=== PATIENT | male | born 1975 | race Hispanic/Latino ===

== ENCOUNTER 2017-01-16 11:16 | Inpatient (IN) | payer OTHER ==
[~2017-01-16] VITALS: Ht 177.8 cm; Wt 93.5 kg
[~2017-01-16 11:16] MED LIST: ATEN50TA7 PO; INSU100C4 SQ; INSU100V8 IJ
[2017-01-16 11:19] VITALS: BP 150/106; PULSE 130; RESP 22; O2SAT 100
--- NOTE | 2017-01-16 11:31 | ED.REPORT ---
HPI-General Illness Date of Service Jan 16, 2017 ED Provider: Hussein Meier MD Pt is a 41 year old male with a history of type II DM on insulin and HTN who presents to the ED complaining of vomiting onset 3 days ago. He c/o associated abdominal pain, tachypnea, palpitations, and nausea. He denies fever, cough, increased urination, hematemesis, and SOB. Pt presented to Urgent Care with his symptoms and he was referred to the ED for further evaluation due to a blood sugar greater than 500. Pt reports that his vomiting is exacerbated with acidic beverages. He has experienced similar symptoms 1x previously. He states that he last used 30 units of Novolog this morning. Nursing Notes Stated Complaint: BLODD SUGAR LEVEL Chief Complaint: General Complaint Nursing Notes Reviewed: Yes ([facility]. meds not reconciled) Allergies: Coded Allergies: No Known Allergies (Verified , 02/09/09) Scheduled Insulin Regular, Human (Novolin-R U100 Insulin Vial) 100 Unit/1 Ml Vial Unknown Dose SQ ACHS General Time Seen by MD: 11:24 Chief Complaint Vomiting Hx Obtained From: Patient Arrived By: Walk-in Sudden in Onset?: No Onset Occurred: 3 days ago Symptom Duration: Since onset Location: : Abdomen Quality: Painful Radiation: : Does not radiate Severity: Current: Moderate Severity: Maximum: Moderate Recent Healthcare: Recent doctor visit Similar Sx Previous: Yes Past Medical History Past Medical History Reports: Diabetes mellitus (type II), Hypertension Past Surgical History Denies: Appendectomy, Cholecystectomy Smoking History Unknown if Ever Smoker Social History Alcohol Use: "Social" Drug Use: Denies drug use Other Social History: Good social support Ambulatory Status Independent Review of Systems + tachypnea Full Review of Systems Constitutional: Denies: Fever Respiratory: Denies: Non-productive cough, Shortness of breath Cardiovascular: Reports: Palpitations GI: Reports: Abdominal pain, Nausea, Vomiting, Denies: Hematemesis Male: Denies Urination increased Complete sys rev & neg: except as marked. Physical Exam Vital Signs Vital Signs Date Time Temp Pulse Resp B/P Pulse Ox O2 Delivery O2 Flow Rate FiO2 01/16/17 11:19 36.3 130 22 150/106 100 Initial VS: Reviewed, Vital signs abnormal Head / Eyes: Atraumatic, Normocephalic Neck: Supple, Full range of motion Cardiovascular: Regular rate & rhythm, Heart sounds normal, Intact distal pulses Extremities: Vascular intact, Neuro intact Skin: Warm, Dry, No cyanosis Neurologic: Alert, Oriented, Nonfocal Psychiatric: Mood/affect normal, Behavior normal General/Constitutional: Awake, Alert He is moderately ill appearing and severely dehydrated. Mouth: Positive: Mucous membranes dry Respiratory / Chest: Atraumatic, Breath sounds = bilat He is not short of breath or dypneic, but has kussmaul respiration. Cardiovascular: Regular rhythm, Heart sounds NL, No murmurs Heart Rate / Rhythm: Positive: Tachycardia Abdomen: Atraumatic, Soft, Non-tender, No guarding, No rebound There are no signs of acute surgery Interpretation & Diagnostics Lab Results Interpretation Result Diagram: 01/16/17 1133 01/16/17 1133 Test 01/16/17 11:30 01/16/17 11:33 Phosphorus Level 5.9mg/dL (2.5-4.9) Magnesium Level 2.0mg/dL (1.6-2.6) Lipase 864U/L (13-60) White Blood Count 10.3th/mm3 (3.8-10.1) Red Blood Count 5.12mil/mm3 (4.40-5.80) Hemoglobin 15.8g/dL (13.8-17.2) Hematocrit 48.0% (41.0-50.0) Mean Corpuscular Volume 93.8fL (81-100) Mean Corpuscular Hemoglobin 30.9pg (27.0-35.0) Mean Corpuscular Hemoglobin Concent 32.9% (32.0-37.0) Red Cell Distribution Width 12.2% (12.3-15.4) Platelet Count 108bil/L (150-400) Neutrophils (%) (Auto) 80.0% (40-74) Lymphocytes (%) (Auto) 7.3% (14-46) Monocytes (%) (Auto) 10.7% (4-12) Eosinophils (%) (Auto) 0% (0-5) Basophils (%) (Auto) 0.8% (0-3) Sodium Level 131mEq/L (134-144) Potassium Level 5.3mEq/L (3.5-5.2) Chloride Level 85mEq/L (97-108) Carbon Dioxide Level 4mmol/L (18-29) Blood Urea Nitrogen 14mg/dL (6-24) Creatinine 1.19mg/dL (0.76-1.27) Estimat Glomerular Filtration Rate 72mL/min (>59) Glucose Level 542mg/dL (60-99) Calcium Level 9.0mg/dL (8.5-10.1) Total Bilirubin 1.0mg/dL (0.0-1.2) Aspartate Amino Transf (AST/SGOT) 101U/L (0-50) Alanine Aminotransferase (ALT/SGPT) 109U/L (0-44) Alkaline Phosphatase 164U/L (25-150) Troponin T 0.010ug/L (0.0-0.011) Total Protein 9.3g/dL (6.4-8.4) Albumin 4.8g/dL (3.4-5.0) Hold Comer Top Tube Received (Received) Ketones Moderate (Negative) Lab Results Interpretation: CBC normal CMP trace hyperkalemia, severe metabolic anion gap acidosis, hyperglycemia-consistent with DKA Ketones moderate Troponin #1 negative LFTs marginally elevated pH: 7.045 PCO2: 23 PO2: 44.8 cHCO3: 5.9 cBase: -25.1 tHb: 16.5 sO2: 67.9 FCoHb: 1.8 FMetHb: 1.1 Fo2Hb: 65.9 FIO2: 21.0 ECG Interpretation ECG Interpretation: Sinus tachycardia with a rate of 129 Peaked t-waves Benign early repolarization Unchanged from 01/2009 aside from the tachycardia Time: 11:38 Interpreted by: ED physician Re-Eval/Medical Decision Med Decision/Clinical Course This is a 41-year-old male in some dependent diabetes who reports he has not been able to afford his Lantus or atenolol, spent trying to get by on just his NovoLog through for the past 3 days his had nausea, vomiting, poly-dyspnea, and just felt worse and worse when he went to urgent care-ends and referred to the ED. He denies fever, is not currently having abdominal pain, he denies diarrhea, he is profoundly tachycardic-but not febrile or hypotensive. He appears severely dehydrated and has [place] respirations are evident on exam with the tachypnea. The venous blood gas confirms a significant metabolic acidosis, Accu -Chek was elevated, and labs demonstrate significant diabetic ketoacidosis with an anion gap 42. Patient received initial aggressive hydration, insulin drip per DKA protocol was initiated (this note there is no order set for this in the computer system, the paper system for DKA order sets were used) the patient's being admitted to the CCU. He is mildly hyperkalemic here, but I anticipate need for aggressive potassium replacement shortly. Renal function is normal. He indicates his DKA is precipitated by the medication noncompliance rather than an acute coronary syndrome, acute abdomen, sepsis, etc... This is discussed with hospice the patient is being admitted for continued management. Source of Hx: Old records Time of Eval: 12:09 Patient Status: Condition improved Re-Evaluation/Progress Note: Pt rechecked. Informed pt of diabetic ketoacidosis. Informed pt of plan for admission. Pt understands and agrees with plan for admission. Pt reports that he does not take lantus currenly. All questions addressed. Consultation : Referral / Consult Name: Brie Estrella MD Consulted With: Hospitalist Call Returned at: 12:43 Filter Tank Tender: Will see patient, Agrees with eval, Agrees with plan, Accepts admit Differential Diagnosis: Positive: Diabetes mellitus, Negative: Abdominal pain, Acute coronary syndrome, Allergies, Malingering, Medication refill, Neutropenia, Pneumonia, Seizure disorder Counseled Regarding: Diagnosis, Lab results, Need for admission Discharge & Departure Primary Impression: DKA (diabetic ketoacidoses) Diabetes mellitus type: other specified (including ELIEL) Diabetes mellitus complication detail: without coma Qualified Code: E13.10 - Other specified diabetes mellitus with ketoacidosis without coma Disposition: ADMITTED TO HOSPITAL Discharge Condition All VS Reviewed: Yes Condition: Stable Crit Care Except Billable Proc Time Spent: 30-74 minutes Services Performed: Patient management by me, Time spent at bedside, Reviewing test results, Reviewing imaging, Discussing patient care, Documentation in record, Time with fam/surrogate Scribe Attestation Portions of this note were transcribed by Bettie Toribio. I, Dr. Meier personally performed the history, physical exam and medical decision-making; I reviewed and confirmed the accuracy of the information in the transcribed note. Signed by: Lucía Nava, 01/16/17. Hussein Meier MD Jan 16, 2017 11:31 Bettie Olmedo Jan 16, 2017 11:39
[2017-01-16] MEDS ORDERED: 0.9% Sodium Chloride 1,000 ML IV ONE ×2 (11:35→11:45)
--- NOTE | 2017-01-16 11:40 | ABG ---
DateTimeAnalyzed 11:33:00 -_ pH ____7.045 - 7.320 7.420 pCO2 ___22.5__ -mmHg 41.0 51.0 pO2 ___44.8__ -mmHg 24.0 40.0 HCO3- ____5.9__ -mmol/L ABE __-25.1__ -mmol/L tHb ___16.5__ -g/dL 12.0 18.0 O2Hb ___65.9__ -% COHb ____1.8__ -% 0.0 1.5 MetHb ____1.1__ -% 0.4 1.5 sO2 ___67.9__ -% FIO2 ___21.0__ -% Drawn By as - Date/Time Notified____ 11:40:00 -_ Notified By AMS - Notified Whom DR LIANET - B 759 -mmHg tO2 ___15.2__ -Vol% José Manuel test N/A -
[2017-01-16] MEDS ORDERED: Ondansetron 2 mg/mL 2 mL Inj IVPUSH ONE (11:45)
[2017-01-16 11:48] LABS: BASOPHILS % (AUTO) 0.8 % (0-3); EOSINOPHILS % (AUTO) 0 % (0-5); MONOCYTES % (AUTO) 10.7 % (4-12); Mean Corpuscular Hemoglobin 30.9 pg (27.0-35.0); Mean Corpuscular Volume 93.8 fL (81-100); Platelet Count 108 bil/L (150-400)
[2017-01-16] MEDS ORDERED: Insulin Human REGular 300 Unit/3 mL Inj IV PRN (12:00)
[2017-01-16] MEDS: Insulin Human REGular 100 Units/100 mL NS IV SCH ×4 (12:17→19:56)
[2017-01-16] MEDS ORDERED: ATEN50TA PO (12:22)
[2017-01-16 12:48] VITALS: BP 156/94; PULSE 108; RESP 24; O2SAT 100
[2017-01-16] MEDS ORDERED: Senna-Docusate 8.6-50 mg Tablet PO PRN (13:25)
[2017-01-16] MEDS ORDERED: Alum-Mag Hydrox-Simeth 30 mL Suspension PO PRN (13:25)
[2017-01-16] MEDS ORDERED: Polyethylene Glycol (PEG) 17 Gm Powder PO PRN (13:25)
[2017-01-16] MEDS ORDERED: Ondansetron 2 mg/mL 2 mL Inj IVPUSH PRN (13:25)
[2017-01-16 13:30] VITALS: BP 148/96; PULSE 120; RESP 25; O2SAT 100
[2017-01-16 14:08] LABS: Phosphorus 5.9 mg/dL (2.5-4.9)
[2017-01-16] MEDS ORDERED: INSU100V27 SQ (14:11)
--- NOTE | 2017-01-16 14:27 | NUR ---
PT ARRIVED TO CCU FROM ER AT 1430HRS PT IS COMPLAINING OF ABDOMINAL PAIN, 01/02 ( WILL OBTAIN MAIN MEDS FOR HIM) HE ALSO HAS NAUSEA AND SOME RETCHING. HR IS 112 ST, BP 150/92 SATS 99% ON ROOM AIR. INSULIN GTT AT .2UNITS/HR
--- NOTE | 2017-01-16 14:29 | PCM.HPMED ---
Subjective Date of Service Jan 16, 2017 Primary Provider: Admitting Physician: Brie Estrella MD Primary Care Physician: Nopcp Attending Physician: Brie Estrella MD Chief Complaint: Patient is a 41-year-old male with medical history significant for diabetes type II percent it to the ED with 3 days of nausea and vomiting. History of Present Illness: Per patient, reports abdominal cramps, nausea, vomiting, and weakness since last Friday and today started having diarrhea as well. Additionally, he states increase in heavy breathing. Patient denies any recent infection or respiratory symptoms, no fevers, chills, or night sweats, nor does he have any contact with sick or use of antibiotics. He further denies any SOB, CP, no leg cramps or pain. He reports having similar symptoms in the past and was admitted for DKA and newly diagnosed diabetes type II. Patient has been managing his diabetes with [id number] medication for over the past 3 years as patient does not have a PCP or insurance. He has been taking Novolin R. Patient was initially presented to urgent care which found that he has a blood glucose of > 500mg/dl, thus referred him to the ED. Blood work showed that patient have an anion gap of 41, bicarbonate of 4, sodium 131, and moderate ketones. ABG PH 7.045, with PCO2 22, PO2 of 44.8 on room air, and bicarbonate of 5.9. EKG demonstrates sinus tachycardia with peaked T-wave, abnormal R-wave redemonstrated from 2008. Review of Systems: A comprehensive review of systems was conducted with the patient and found to be negative except as above in the History of Present Illness. Allergies Coded Allergies: No Known Allergies (Verified , 02/09/09) Home Medications Novolin R H Diabetes type II diagnosed in 2008 Surgical History Denies any surgical history Family History Mother, father, grandmother with diabetes type II Social History Hx Alcohol Use: Yes (in the past) Hx Substance Use: No Hx Tobacco Use: No Smoking Status: Never Smoker Exam Vital Signs Vital Sign - Last Date Time Temp Pulse Resp B/P Pulse Ox O2 Delivery O2 Flow Rate FiO2 01/16/17 12:48 108 24 156/94 100 Room Air 01/16/17 11:19 36.3 Exam General: No acute distress, appropriately interactive HEENT: Normocephalic, atraumatic. PERRLA, EOMI, Anicteric sclerae Neck: No JVD, No bruits. No lymphadenopathy or thyromegaly. Cardiovascular: Regular rhythm, tachycardic, no murmur rub or gallop noted Pulmonary: b/l air sound with no crackles, wheezes, or rhonchi. no use of accessory muscles. Abdomen: +Bowel sound, Soft, nontender, nondistended. Extremities: No clubbing or cyanosis, no lymphedema, no b/l lower leg edema Skin: Normal temperature, turgor, and texture; no rash. No visualized skin ulcer. Neurological: CN II-VII grossly intact, moving equally on all 4 extremities Psychiatric: Normal mood and affect. AOx3 Lab and Diagnostics Result Diagram: 01/16/17 1133 01/16/17 1133 Assessment & Plan Pt is a 41-year-old male with medical history significant for diabetes type II presented with a blood glucose > 500mg/dl, found to be in DKA, thus admitted to the ICU for further medical management. Diabetes ketoacidosis, present on admission, active -Likely 2nd to not using Lantus as unable to purchase it. -Blood sugar 542 on admission with moderate ketones, gap 42, bicarbonate 4, ABG pH 7.045 -Monitor for electrolyte imbalance, BMP every 4 hours or until gap closes -Received 2 liters of normal saline in the ED, continue normal saline 150 mL/hr -Insulin drip, DKA protocol in place Possible acute pancreatics, present on admission, active -Lipase 866 with n/v, obstructive stones? -CT-abd pelvis with contrast ordered -Bowel rest, NPO -Fluids as above Insulin-dependent diabetes type II, present on admission, chronic -We will start Lantus 22 units when gap closes -Will also start lispro: Medium sliding scale -A1c, lipid ordered -Patient needs a PCP for follow-up upon discharge Transaminitis -No abdominal pain, no history of EtOH -Lipase, Hepatitis panel, HIV ordered Elevated blood pressure -Likely stress-induced -Consider adding lisinopril if SBP > 130 mmHg once DKA resolved DVT prophylaxis: Heparin CODE STATUS full code Patient Status: Patient is admitted under inpatient status with expected length of stay GREATER than 2 midnights due to severity of presenting symptoms, risk of adverse event, and complexity of treatment plan. VTE Prophylaxis: Sub-Q Heparin (Unfractionated) Resuscitation Status: CPR: Attempt Resuscitation Time spent 60 minutes Attending Statement Patient has been seen and examined by myself with medical manager and agree with above history, physical, assessment and plan. Jake Barlow DO Jan 16, 2017 14:29 Brie Estrella MD Jan 16, 2017 15:57
[2017-01-16] MEDS ORDERED: HYDROmorphone 1 mg/mL Inj IVPUSH PRN (14:45)
[2017-01-16] MEDS: 0.9% Sodium Chloride 1,000 ML IV SCH ×2 (15:10→20:16)
[2017-01-16] MEDS: D5W1/2NS 1,000 mL IV PRN (15:11)
[2017-01-16 16:00] VITALS: BP 130/65; PULSE 113; RESP 20; O2SAT 99
--- NOTE | 2017-01-16 16:33 | NUR ---
Pt to CT at 1630hrs OK'd pt to travel to CT off the monitor without CCU nurse. Pt states his pain is much better. He was able to tolerate the PO contrast and is going to CT per MD orders.
--- NOTE | 2017-01-16 16:57 | NUR ---
Pt returned from CT at approx 1650hrs
--- NOTE | 2017-01-16 17:07 | DRSVH ---
PROCEDURE: CT ABDOMEN AND PELVIS WITH CONTRAST ([id number]) INDICATIONS: elevated lipase, pancreatitis? stones? TECHNIQUE: After the administration of oral and intravenous contrast, 5 mm thick sections acquired from the diap hragms to the symphysis. 5 mm thick coronal and sagittal reformats were performed. For radiation do se reduction, the following was used: automated exposure control, adjustment of mA and/or kV accordi ng to patient size. COMPARISON: None. FINDINGS: Image quality: Excellent. ABDOMEN: Lung bases: Lung bases are clear. Heart size is normal. Solid organs: The liver is diffusely hypodense suggesting fatty infiltration. The spleen demonstrate s normal size and enhancement. A 4 mm diameter gallstone is present within the gallbladder fundus. No discrete gallbladder wall thickening or pericholecystic fluid. Biliary system is non-dilated. There is a 3.8 cm in diameter fatty right adrenal gland mass and a 1.0 cm in diameter fatty left adrenal gl and mass. Kidneys are normal in size and enhancement, without hydronephrosis. Subcentimeter low-dens ity cystic lesions are present within the left renal cortex which likely represent simple renal cysts but are too small to fully characterize. There is homogeneous pancreatic enhancement. There is diffuse peripancreatic fat stranding. No discre te peripancreatic fluid collections. Pancreatic duct is not visualized. Peritoneum and bowel: Stomach, small bowel, and colon loops are normal in caliber and wall thickness . The appendix is thin walled and gas filled. No free fluid or air. Nodes and vessels: No retroperitoneal or mesenteric adenopathy. Aorta and inferior vena cava are no rmal in caliber. Miscellaneous: No ventral hernias. PELVIS: Genitourinary: Bladder wall thickness is normal. Miscellaneous: No inguinal hernias or adenopathy. Bones: No suspicious bony lesions. No vertebral body compression fractures. IMPRESSION: 1. Acute pancreatitis, edematous type. This finding was discussed with Dr. Alexandra at 5:01 PM on 01/16/17. 2. No intrahepatic biliary ductal dilatation, dilatation of the common bile duct, or pancreatic ducta l dilatation. No discrete hypodensity focus is present within the biliary system to suggest gallstone pancreatitis. 3. Cholelithiasis. No findings to suggest choledocholithiasis or acute cholecystitis. 4. Hepatic steatosis. 5. Bilateral adrenal myelolipomas. Dictated by: Rozina Cat M.D. on 01/16/2017 at 16:57 Approved by: Rozina Cat M.D. on 01/16/2017 at 17:05
[2017-01-16] MEDS: Heparin 5,000 Unit/mL Inj SUBQ SCH (17:56)
--- NOTE | 2017-01-16 19:05 | NUR ---
Pt condition improved Pt HR is down in the 80's SR. BP stable. RR 16-20. Pt states he feels better this evening. No further nausea or vomiting. OT's decreasing and we are following the DKA protocol. Pt states his abdominal pain is much better following the diluadid.
[2017-01-16 20:00] VITALS: BP 128/82; PULSE 90; RESP 14; O2SAT 98
[2017-01-17] VITALS (8 sets, daily range): BP systolic 127–162; BP diastolic 76–102; PULSE 79–88; RESP 12–18; O2SAT 97–99
[2017-01-17] MEDS: Heparin 5,000 Unit/mL Inj SUBQ SCH (01:00)
[2017-01-17] MEDS: 0.9% Sodium Chloride 1,000 ML IV SCH ×2 (01:40→09:36)
[2017-01-17 04:23] LABS: BASOPHILS % (AUTO) 0.2 % (0-3); EOSINOPHILS % (AUTO) 2.6 % (0-5); MONOCYTES % (AUTO) 14.4 % (4-12); Mean Corpuscular Hemoglobin 31.7 pg (27.0-35.0); Platelet Count 67 bil/L (150-400)
[2017-01-17] MEDS ORDERED: KCl 40 mEq/500 mL D5W(K 3 - 3.7 & Creat < 2) IV ONE (05:15)
--- NOTE | 2017-01-17 05:20 | NUR ---
P) DKA/Respiratory Alert pt., c/o abdominal tenderness and pain but not enough that he wants pain Rx. at this point, lungs with coarse breath sounds and scattered crackles. Cardiac rhythm sinus, blood sugar in the 120's on 0.05units/kilo/hr, anion gap has gone from 23 to 15. Potassium dropped from 4.3 to 3.3, checking phos and Mg. to ensure they have not dropped as well. I) Meds per 's orders, went over pulmonary hygiene, discussed anion gap with Dr. Garcia, will cont. DKA protocol until it is closer to 12. E) Pt. resting quietly with eyes closed.
[2017-01-17 05:36] LABS: Magnesium 1.6 mg/dL (1.6-2.6); Phosphorus 1.5 mg/dL (2.5-4.9)
[2017-01-17] MEDS ORDERED: Potassium Phos (mMol) Inj 30 MMOL in Dextrose 5% 500 ML IV ONE (06:25)
[2017-01-17] MEDS: D5W1/2NS 1,000 mL IV PRN (07:07)
[2017-01-17 08:56] LABS: Bilirubin, Direct 0.2 mg/dL (0.0-0.3)
[2017-01-17 09:09] LABS: Hepatitis A Antibody IgM Negative (Negative); Hepatitis B Core Antibody IgM Negative (Negative)
--- NOTE | 2017-01-17 09:39 | PCM.PNMED ---
Subjective Date of Service Jan 17, 2017 Subjective Mr. Lindo is a 41-year-old male with medical history significant for diabetes type II presented with a blood glucose > 500mg/dl, found to be in DKA, thus admitted to the ICU for further medical management. Blood sugar levels continued to drop on insulin drip. Anion gap continues to close. We will transition off insulin drip after 2 hours of subcutaneous coverage. Patient states he feels very well overall states that he does not have any abdominal pain any longer. Will be transferred off of ICU Exam Vital Signs Vital Sign - Last Date Time Temp Pulse Resp B/P Pulse Ox O2 Delivery O2 Flow Rate FiO2 01/17/17 08:00 37.1 79 14 142/94 99 Room Air Intake and Output 01/16/17 01/16/17 01/17/17 Cumulative From/Thru 15:00 23:00 07:00 01/16/17 11:19 - 01/17/17 06:07 Intake Total 999 ml 1243 ml 2432 ml 4674 ml Output Total 0 ml 650 ml 650 ml Balance 999 ml 1243 ml 1782 ml 4024 ml Intake Oral 600 ml 600 ml IV Total 999 ml 643 ml 2432 ml 4074 ml Output Urine Total 0 ml 650 ml 650 ml Exam General: Awake and alert lying in hospital bed in no acute distress, well- developed, well-nourished, appropriately interactive HEENT: Normocephalic, atraumatic. External ears without defect. Pupils equal, round, and reactive to light and accommodation. Anicteric sclerae, moist conjunctivae, and no lid lag. Oropharynx free of erythema and cobble stoning with moist mucosa. Neck: Supple with full range of motion. No jugular venous distension. Cardiovascular: Regular rate and rhythm with no murmurs, rubs, or gallops appreciated Pulmonary: Clear to auscultation bilaterally with no crackles, wheezes, or rhonchi. Normal respiratory effort with no use of accessory muscles. Abdomen: Obese abdomen Bowel tones present. Soft, nontender to palpation 4 quadrants. Tender to deep palpation epigastric area. Extremities: No clubbing, cyanosis, edema Skin: Normal temperature, turgor, and texture Neurological: Cranial nerves grossly intact. Psychiatric: Normal mood and affect. Alert and oriented to person, place, and time. IVs and Medications Medications Reviewed: Medications were reviewed in detail Lab and Diagnostics Result Diagram: 01/17/1740401/17/17404 X-Rays, CTs and MRIs . CT ABDOMEN AND PELVIS WITH CONTRAST IMPRESSION: 1. Acute pancreatitis, edematous type. 2. No intrahepatic biliary ductal dilatation, dilatation of the common bile duct , or pancreatic ductal dilatation. No discrete hypodensity focus is present within the biliary system to suggest gallstone pancreatitis. 3. Cholelithiasis. No findings to suggest choledocholithiasis or acute cholecystitis. 4. Hepatic steatosis. 5. Bilateral adrenal myelolipomas. Dictated by: Rozina Cat M.D. on 01/16/2017 Assessment & Plan Pt is a 41-year-old male with medical history significant for diabetes type II presented with a blood glucose > 500mg/dl, found to be in DKA, thus admitted to the ICU for further medical management. Diabetes ketoacidosis, present on admission, ongoing -Likely secondary to unmedicated status, no coverage for diabetes as outpatient -Blood sugar 542 on admission with moderate ketones, gap 42, bicarbonate 4, ABG pH 7.045 -Received 2 liters of normal saline in the ED, continue normal saline 150 mL/hr -Repeat Glucose 128, Anion gap now 15 -Insulin drip, DKA protocol in place -Continue to monitor, will start Sub-Q insulin and titrate off Insulin drip Possible acute pancreatics, present on admission, ongoing -Lipase 866 on admission, trending down - 734 last value -CT-abd pelvis shows acute pancreatitis -MRCP pending -Bowel rest, NPO -Repeat enzyme levels pending -Fluids as above -Continue with IV pain medications, will transition to oral as tolerated -Continue to monitor Insulin-dependent diabetes type II, present on admission, chronic -Insulin drip for DKA, titrating off -Correctional scale insulin -A1c 12.2 -Will need PCP placement on discharge for ongoing DM management Transaminitis, present on admission, ongoing -Most likely secondary to hepatic steatosis -CT showed no biliary,bile or pancreatic duct dilation. -Continues to trend upward -HBV, HCV, HIV negative Elevated blood pressure, present on admission, improving -Likely stress-induced -Remained mostly hemodynamically stable -Consider adding lisinopril if SBP > 130 mmHg once DKA resolved Thrombocytopenia, not present on admission -DC SUB-Q heparin DVT prophylaxis: Heparin CODE STATUS full code Patient Status: Patient is admitted under inpatient status with expected length of stay GREATER than 2 midnights due to severity of presenting symptoms, risk of adverse event, and complexity of treatment plan. Pain Evaluation: Adequate Pain Control VTE Prophylaxis: Sub-Q Heparin (Unfractionated) Resuscitation Status: CPR: Attempt Resuscitation Time spent 30 minutes Attending Statement Patient has been seen and examined by myself with infertility medical assistant and agree with above history, physical, assessment and plan. DESTINY GUEVARA DO Jan 17, 2017 09:39 Brie Estrella MD Jan 17, 2017 17:07
--- NOTE | 2017-01-17 13:30 | NUR ---
NUTRITION ASSESSMENT: ASSESS:41 YO male presented with abdominal cramps, nausea, vomiting, and weakness since last Friday and today with diarrhea as well. Additionally, he states difficulty breathing. Pt. was found to be in DKA, thus admitted to the ICU for further medical management. Patient has been managing his diabetes with [id number] medication for over the past 3 years as patient does not have a PCP or insurance. He did receive inpatient diabetes education when he was first diagnosed in 2008; no outpatient education was documented. PMHx:Diabetes type II diagnosed in 2008. DIET:NPO. LABS: Reviewed. Na 131, K+ 3.3, COw 17, Cr 0.58, Glu 162, A1c 12.2, Ca 8.1, AST 72, ALT 72, alb 3.8. MEDICATIONS: Reviewed. Insulin. NUTRITION FOCUSED PHYSICAL ASSESSMENT: GI symptoms / stool: No BM reported.Oliver: 17. Skin Integrity: No issues noted. ANTHROPOMETRICS: Current Wt: 91.82 kgBMI: 29.0 kg/m2. IBW: 73.0 kg (126% IBW) ESTIMATED NEEDS (APPROACHING CLASS I OBESITY): Calories: 2020 - 2296 kcal (22 - 25 kcal / kg BW) Protein: 73 - 138 g protein (0.8 - 1.5 b / kg BW) NUTRITION DIAGNOSIS: 1)Inability, lack of desire and financial constraints to manage self-care, as evidenced by food- and nutrition-related knowledge deficit concerning self care, as evidenced by admission with DKA, using OTC medication due to inability to afford prescription medication. INTERVENTION: 1) Case Management involved to locate a PCP for this patient to help him with diabetes self-management skill building. 2)Will provide inpatient diabetes education prior to discharge and assure patient has a glucose meter for self-monitoring following discharge. MONITOR/EVALUATE: Diet advance / tolerance, PO intake, labs, GI/nutrition status. Follow up per high nutrition risk guidelines.
[2017-01-17] MEDS ORDERED: Insulin GLARgine 100 Unit/mL Syringe SUBQ ONE (13:35)
[2017-01-17] MEDS: Dextrose 5% 0.45% NaCl 1,000 ML IV SCH ×2 (13:40→15:43)
[2017-01-17 13:51] LABS: Phosphorus 2.7 mg/dL (2.5-4.9)
[2017-01-17] MEDS ORDERED: Insulin Human NPH 100 Unit/mL Syringe SUBQ ONE (14:10)
[2017-01-17] MEDS ORDERED: Insulin Human REGular 300 Unit/3 mL Inj SUBQ SCH (14:30)
--- NOTE | 2017-01-17 15:26 | NUR ---
POST HOSPITAL FOLLOW UP: Called and scheduled hospital follow up appointment for 01/24/17 check in at 235PM for 250PM with Updated PIG IRON LOADER
[2017-01-17] MEDS ORDERED: Insulin Human REGular 300 Unit/3 mL Inj SUBQ ONE (15:35)
--- NOTE | 2017-01-17 16:36 | NUR ---
Social Work- Initial Assessment/Multidisciplinary Rounds Data: See Initial Assessment and Advance Directive intervention for additional information. Pt is a 41 year old male admitted for DKA. Pt's insurance is [employer] and [employer]. Pt has no PCP. Pt's readmit risk score is 1/8, low risk. Pt discussed in multidisciplinary rounds, SW requested to help pt obtain his insulin. Pt will also require PCP follow up. Case management orders acknowledged. ROSELINE met with pt and niece at bedside regarding d/c planning, SW role explained. Pt alert and oriented x3. Pt's capacity for self-care assessed. Pt lives in [place] with his SO Bernard where he is independent with ADLs and self-care. Pt works as a [employer] in [place]. Pt drives. Pt is unsure if he has [employer] any longer since he has insurance through his job now. Pt declined DPOA information. Pt confirms that his niece will likely drive him home at d/c. SW discussed PCP and insulin with pt. Pt is agreeable to PCP follow up at [facility] clinic, DEVELOPMENTAL TRAINING COUNSELOR asked to make appointment for hospital follow up. Pt states that he has been managing his insulin himself as his lantus is too expensive, even after insurance. Pt wants to be compliant with his insulin but finances are a barrier. Pt asked if management was possible with the more affordable options at [facility], his preferred pharmacy. ROSELINE informed of this, asked EQUITY RESEARCH ANALYST to obtain pricing and type for the insulin pt was referring to. Information as follows: Reli ON $24.88 per vial Novlin N $24.88 per vial Novlin R $24.88 per vial ROSELINE provided contact information and d/c planning checklist at bedside. Pt likely to d/c home with his niece to transport. SW will continue to follow. Assessment: Pt who is independent with ADLs and self-care Plan: Pt likely to d/c home with his niece to transport via POV. ROSELINE will continue to follow and assist with any additional d/c planning needs. SOURAV Romero Addendum: 01/17/17 at 1643 by ROMEL DICKSON Amended: Links added.
--- NOTE | 2017-01-17 16:43 | NUR ---
DKA.. Pt has denied any abdominal pain or nausea. Has been sleeping most of shift and stated this afternoon that he feels so much better. Has been transitioned off DKA insulin protocol to subcutaneous algorhythm. Blood sugar remains stable off gtt and pt has no sxs. Is beginning to auto diurese, voiding large amts urine per void. K+ recheck remains low.. protocol orders sent for replacement. Has been changed to PCC status.
[2017-01-17] MEDS ORDERED: Potassium Chloride Inj 40 MEQ in 0.9% Sodium Chloride 500 ML IV ONE (16:45)
[2017-01-17] MEDS: Insulin GLARgine 100 Unit/mL Syringe SUBQ SCH (20:08)
[2017-01-17] MEDS: Insulin Human REGular 300 Unit/3 mL Inj - Medium SUBQ SCH (20:11)
--- NOTE | 2017-01-17 22:01 | NUR ---
Hypertension Pt maintaining a MAP of 100-110. Systolic 145-160. Dr. Myers called with concern for hypertension and plan is to add Lisinopril to his medications for hypertension. Pt asymptomatic. Addendum: 01/18/17 at 0539 by GALLO BULLOCK RN K=3.2, Mg=1.6 Telephone order received to replace K and Mg in NS mixture instead of dextrose solution due to patient's hyperglycemia and recent DKA. Recheck level to be drawn by day shift lab once infusion completed.
[2017-01-18] VITALS (8 sets, daily range): BP systolic 138–153; BP diastolic 91–99; PULSE 76–86; RESP 13–18; O2SAT 97–99
[2017-01-18] MEDS: Insulin Human REGular 300 Unit/3 mL Inj - Medium SUBQ SCH ×2 (02:21→07:51)
[2017-01-18] MEDS: Dextrose 5% 0.45% NaCl 1,000 ML IV SCH (02:21)
[2017-01-18 03:30] LABS: BASOPHILS % (AUTO) 0.6 % (0-3); EOSINOPHILS % (AUTO) 1.7 % (0-5); MONOCYTES % (AUTO) 14.3 % (4-12); Mean Corpuscular Hemoglobin 31.6 pg (27.0-35.0); NEUTROPHILS % (AUTO) 59.1 % (40-74); Platelet Count 67 bil/L (150-400)
[2017-01-18 03:53] LABS: Magnesium 1.6 mg/dL (1.6-2.6)
[2017-01-18] MEDS ORDERED: [UNRECOGNIZED DRUG - OTHER] IV ONE (04:40)
[2017-01-18] MEDS ORDERED: MAGNESIUM SULFATE IV ONE (04:40)
[2017-01-18] MEDS ORDERED: POTASSIUM CHLORIDE IV ONE (04:40)
[2017-01-18] MEDS: Insulin Human REGular 300 Unit/3 mL Inj SUBQ SCH ×3 (08:30→20:17)
[2017-01-18] MEDS: D5 0.9% NaCl + KCl 20 mEq/L 1,000 ML IV SCH ×3 (10:24→22:35)
--- NOTE | 2017-01-18 11:01 | DRSVH ---
PROCEDURE: MR ABDOMEN MRCP INDICATIONS: Possible gallstone pancreatitis TECHNIQUE: Coronal HASTE through the abdomen, axial 2-D FLASH in- and [id number], and breath-hold T2 FSE with fat saturation through the biliary system and pancreas. Oblique coronal and axial thin-slice HASTE, radial thick-slab HASTE centered on the extrahepatic bile ducts. Intravenous secretin: Not requested. COMPARISON: [facility], CT, CT ABD PELVIS W CON, 01/16/2017, 16:40. FINDINGS: Image quality: Excellent. Pancreas and biliary system: Intra- and extra-hepatic biliary ducts are non dilated. No definite int raluminal gallstones identified. There is central intraluminal signal change image 17-18 series 5 whi ch is not confirmed on any other pulse sequences and could be artifactual. No definite associated jessica eloisa dilatation. No gallbladder wall thickening. Diffuse peripancreatic fluid and edema is noted also surrounding the duodenum and within the philippe he patis, as visualized on prior CT dated 01/16/17. Pancreatic duct is normal in caliber, without develop mental anomalies. Gallbladder calculus seen on the prior study dated 01/16/17 is not well-visualized possibly present in the gallbladder neck on image 10 series 5 although indeterminate and this could a lso be artifactual appearance. Other solid organs: Liver and spleen are normal in size. There is peripancreatic fluid and edema. There is a right adrenal lesion with heterogeneous internal signal intensity, and fat attenuation on the recent CT presumably adrenomyolipoma. Additional left adrenal nodules better characterized on rec ent CT, please see report. Both kidneys are normal in size, without hydronephrosis. Nodes and vessels: No retroperitoneal or mesenteric adenopathy by size criteria. Aorta and inferior vena cava are normal in size. Bowel and peritoneum: Unenhanced bowel loops are normal in caliber. No free fluid. Lung bases: No basal pleural effusions. Heart size is normal. Bones and soft tissues: No ventral hernias. Bone marrow is of normal overall signal. IMPRESSION: Acute pancreatitis, as before. A previous small gallstone seen on the recent prior CT is not definitely well-visualized. This could be due to limitations of the imaging modality. Bilateral adrenal lesions, larger on the right and with appearance that suggests adrenal myolipoma. T his is not well-visualized on the left and better visualized on the recent CT. Please see report. Mild perihepatic ascites. No definite intraluminal findings to suggest choledocholithiasis. Please see comments above. If there is persistent high clinical suspicion, recommend further assessment with ERCP. Dictated by: Juvenal Roper M.D. on 01/18/2017 at 10:46 Approved by: Juvenal Roper M.D. on 01/18/2017 at 11:00
[2017-01-18 12:28] LABS: Magnesium 1.9 mg/dL (1.6-2.6)
[2017-01-18] MEDS ORDERED: Potassium Chloride Inj 40 MEQ in 0.9% Sodium Chloride 500 ML IV ONE (13:35)
--- NOTE | 2017-01-18 14:14 | PCM.PNMED ---
Subjective Date of Service Jan 18, 2017 Subjective The patient notes improvement in his upper abdominal pain. He has had no nausea or vomiting. Currently is off of IV insulin drip. Denies significant history of EtOH use. Exam Vital Signs Vital Sign - Last Date Time Temp Pulse Resp B/P Pulse Ox O2 Delivery O2 Flow Rate FiO2 01/18/17 12:59 37.3 81 15 138/91 97 Room Air Intake and Output 01/17/17 01/17/17 01/18/17 Cumulative From/Thru 15:00 23:00 07:00 01/16/17 11:19 - 01/18/17 06:44 Intake Total 2062 ml 1779 ml 8515 ml Output Total 2450 ml 1250 ml 4350 ml Balance -388 ml 529 ml 4165 ml Intake Oral 600 ml IV Total 2062 ml 1779 ml 7915 ml Output Urine Total 2450 ml 1250 ml 4350 ml Other 0 ml 0 ml Exam Constitutional: Middle-aged male in no acute distress Head: Normocephalic atraumatic Chest: Clear to auscultation Cor: Regular rate and rhythm S1-S2 Abdomen: Soft nontender bowel sounds present Extremities: No pedal edema Neuro: Alert and oriented 3, motor strength is intact bilaterally Skin: No rashes Psych: Mood and affect are appropriate Lab and Diagnostics Laboratory Tests 72 Hours Test 01/16/17 11:30 01/16/17 11:33 01/16/17 14:22 01/16/17 15:25 Hemoglobin A1c 12.2% (4.8-5.6) Osmolality 329 (275-300) Phosphorus Level 5.9mg/dL (2.5-4.9) Magnesium Level 2.0mg/dL (1.6-2.6) Lipase 864U/L (13-60) White Blood Count 10.3th/mm3 (3.8-10.1) Red Blood Count 5.12mil/mm3 (4.40-5.80) Hemoglobin 15.8g/dL (13.8-17.2) Hematocrit 48.0% (41.0-50.0) Mean Corpuscular Volume 93.8fL (81-100) Mean Corpuscular Hemoglobin 30.9pg (27.0-35.0) Mean Corpuscular Hemoglobin Concent 32.9% (32.0-37.0) Red Cell Distribution Width 12.2% (12.3-15.4) Platelet Count 108bil/L (150-400) Neutrophils (%) (Auto) 80.0% (40-74) Lymphocytes (%) (Auto) 7.3% (14-46) Monocytes (%) (Auto) 10.7% (4-12) Eosinophils (%) (Auto) 0% (0-5) Basophils (%) (Auto) 0.8% (0-3) Sodium Level 131mEq/L (134-144) 137mEq/L (134-144) Potassium Level 5.3mEq/L (3.5-5.2) 4.3mEq/L (3.5-5.2) Chloride Level 85mEq/L (97-108) 100mEq/L (97-108) Carbon Dioxide Level 4mmol/L (18-29) 6mmol/L (18-29) Blood Urea Nitrogen 14mg/dL (6-24) 12mg/dL (6-24) Creatinine 1.19mg/dL (0.76-1.27) 0.78mg/dL (0.76-1.27) Estimat Glomerular Filtration Rate 72mL/min (>59) 117mL/min (>59) Glucose Level 542mg/dL (60-99) 187mg/dL (60-99) Calcium Level 9.0mg/dL (8.5-10.1) 7.9mg/dL (8.5-10.1) Total Bilirubin 1.0mg/dL (0.0-1.2) Aspartate Amino Transf (AST/SGOT) 101U/L (0-50) Alanine Aminotransferase (ALT/SGPT) 109U/L (0-44) Alkaline Phosphatase 164U/L (25-150) Troponin T 0.010ug/L (0.0-0.011) Total Protein 9.3g/dL (6.4-8.4) Albumin 4.8g/dL (3.4-5.0) Hold Comer Top Tube Received (Received) Ketones Moderate (Negative) Hold Urine Received (Received) Triglycerides Level 330mg/dL (0-149) Cholesterol Level 236mg/dL (100-199) LDL Cholesterol, Calculated 123.000mg/dL (0-99) VLDL Cholesterol 66.000mg/dL HDL Cholesterol 47mg/dL (>39) Cholesterol/HDL Ratio 5.02 (0.0-4.4) Hepatitis A IgM Antibody Negative (Negative) Hepatitis B Surface Antigen Negative (Negative) Hepatitis B Core IgM Antibody Negative (Negative) Hepatitis C Antibody 0.2s/co ratio (0.0-0.9) Hepatitis C Comment Comment (.) HIV (1&2) Ag and Ab, 4th Generation Non reactive (Non Reactive) Test 01/16/17 19:29 01/16/17 23:18 01/17/17 04:05 01/17/17 08:37 Sodium Level 134mEq/L (134-144) 135mEq/L (134-144) 134mEq/L (134-144) 131mEq/L (134-144) Potassium Level 3.9mEq/L (3.5-5.2) 3.8mEq/L (3.5-5.2) 3.3mEq/L (3.5-5.2) 3.3mEq/L (3.5-5.2) Chloride Level 100mEq/L (97-108) 101mEq/L (97-108) 102mEq/L (97-108) 99mEq/L (97-108) Carbon Dioxide Level 11mmol/L (18-29) 15mmol/L (18-29) 17mmol/L (18-29) 17mmol/L (18-29) Blood Urea Nitrogen 11mg/dL (6-24) 11mg/dL (6-24) 11mg/dL (6-24) 10mg/dL (6- 24) Creatinine 0.72mg/dL (0.76-1.27) 0.70mg/dL (0.76-1.27) 0.61mg/dL (0.76-1.27) 0.58mg/dL (0.76-1.27) Estimat Glomerular Filtration Rate 128mL/min (>59) 132mL/min (>59) 155mL/min (>59) 164mL/min (>59) Glucose Level 165mg/dL (60-99) 141mg/dL (60-99) 128mg/dL (60-99) 164mg/dL (60-99) Calcium Level 8.1mg/dL (8.5-10.1) 8.4mg/dL (8.5-10.1) 8.0mg/dL (8.5-10.1) 8.1mg/dL (8.5-10.1) White Blood Count 6.3th/mm3 (3.8-10.1) Red Blood Count 4.20mil/mm3 (4.40-5.80) Hemoglobin 13.3g/dL (13.8-17.2) Hematocrit 37.8% (41.0-50.0) Mean Corpuscular Volume 90.0fL (81-100) Mean Corpuscular Hemoglobin 31.7pg (27.0-35.0) Mean Corpuscular Hemoglobin Concent 35.2% (32.0-37.0) Red Cell Distribution Width 11.6% (12.3-15.4) Platelet Count 67bil/L (150-400) Neutrophils (%) (Auto) 64.0% (40-74) Lymphocytes (%) (Auto) 18.5% (14-46) Monocytes (%) (Auto) 14.4% (4-12) Eosinophils (%) (Auto) 2.6% (0-5) Basophils (%) (Auto) 0.2% (0-3) Phosphorus Level 1.5mg/dL (2.5-4.9) Magnesium Level 1.6mg/dL (1.6-2.6) Total Bilirubin 0.7mg/dL (0.0-1.2) Direct Bilirubin 0.2mg/dL (0.0-0.3) Aspartate Amino Transf (AST/SGOT) 72U/L (0-50) Alanine Aminotransferase (ALT/SGPT) 72U/L (0-44) Alkaline Phosphatase 103U/L (25-150) Total Protein 7.0g/dL (6.4-8.4) Albumin 3.8g/dL (3.4-5.0) Lipase 734U/L (13-60) Test 01/17/17 13:20 01/18/17 03:08 01/18/17 11:35 Potassium Level 3.2mEq/L (3.5-5.2) 3.2mEq/L (3.5-5.2) 3.6mEq/L (3.5-5.2) Phosphorus Level 2.7mg/dL (2.5-4.9) White Blood Count 4.7th/mm3 (3.8-10.1) Red Blood Count 4.37mil/mm3 (4.40-5.80) Hemoglobin 13.8g/dL (13.8-17.2) Hematocrit 38.9% (41.0-50.0) Mean Corpuscular Volume 89.0fL (81-100) Mean Corpuscular Hemoglobin 31.6pg (27.0-35.0) Mean Corpuscular Hemoglobin Concent 35.5% (32.0-37.0) Red Cell Distribution Width 11.6% (12.3-15.4) Platelet Count 67bil/L (150-400) Neutrophils (%) (Auto) 59.1% (40-74) Lymphocytes (%) (Auto) 24.1% (14-46) Monocytes (%) (Auto) 14.3% (4-12) Eosinophils (%) (Auto) 1.7% (0-5) Basophils (%) (Auto) 0.6% (0-3) Sodium Level 134mEq/L (134-144) Chloride Level 99mEq/L (97-108) Carbon Dioxide Level 18mmol/L (18-29) Blood Urea Nitrogen 5mg/dL (6-24) Creatinine 0.48mg/dL (0.76-1.27) Estimat Glomerular Filtration Rate 204mL/min (>59) Glucose Level 252mg/dL (60-99) Calcium Level 8.3mg/dL (8.5-10.1) Magnesium Level 1.6mg/dL (1.6-2.6) 1.9mg/dL (1.6-2.6) Total Bilirubin 1.3mg/dL (0.0-1.2) Aspartate Amino Transf (AST/SGOT) 83U/L (0-50) Alanine Aminotransferase (ALT/SGPT) 68U/L (0-44) Alkaline Phosphatase 97U/L (25-150) Total Protein 6.2g/dL (6.4-8.4) Albumin 3.4g/dL (3.4-5.0) Lipase 565U/L (13-60) Result Diagram: 01/18/17 0308 01/18/17 1135 X-Rays, CTs and MRIs . CT ABDOMEN AND PELVIS WITH CONTRAST IMPRESSION: 1. Acute pancreatitis, edematous type. 2. No intrahepatic biliary ductal dilatation, dilatation of the common bile duct , or pancreatic ductal dilatation. No discrete hypodensity focus is present within the biliary system to suggest gallstone pancreatitis. 3. Cholelithiasis. No findings to suggest choledocholithiasis or acute cholecystitis. 4. Hepatic steatosis. 5. Bilateral adrenal myelolipomas. Dictated by: Rozina Cat M.D. on 01/16/2017 MRCP IMPRESSION: Acute pancreatitis, as before. A previous small gallstone seen on the recent prior CT is not definitely well- visualized. This could be due to limitations of the imaging modality. Bilateral adrenal lesions, larger on the right and with appearance that suggests adrenal myolipoma. This is not well-visualized on the left and better visualized on the recent CT. Please see report. Mild perihepatic ascites. No definite intraluminal findings to suggest choledocholithiasis. Please see comments above. If there is persistent high clinical suspicion, recommend further assessment with ERCP. Assessment & Plan Pt is a 41-year-old male with medical history significant for diabetes type II presented with a blood glucose > 500mg/dl, found to be in DKA, thus admitted to the ICU for further medical management. Diabetes ketoacidosis, present on admission, resolved -Likely secondary to unmedicated status, no coverage for diabetes as outpatient -Blood sugar 542 on admission with moderate ketones, gap 42, bicarbonate 4, ABG pH 7.045 -Received 2 liters of normal saline in the ED, continue normal saline 150 mL/hr -Repeat Glucose 128, Anion gap now 15 -Insulin drip, DKA protocol in place -Continue to monitor, will start Sub-Q insulin and titrate off Insulin drip which occurred on January 17 -DKA resolved Possible acute pancreatics, present on admission, ongoing -Lipase 866 on admission, trending down - 734 last value -CT-abd pelvis shows acute pancreatitis -MRCP pending -Bowel rest, NPO -Repeat enzyme levels pending -Fluids as above -Continue with IV pain medications, will transition to oral as tolerated -Continue to monitor -Lipases are trending down. We will keep nothing by mouth. -MRCP reveals acute pancreatitis but no other acute findings Insulin-dependent diabetes type II, present on admission, chronic -Insulin drip for DKA, titrating off -Correctional scale insulin -A1c 12.2 -Will need PCP placement on discharge for ongoing DM management -Continue with current subcutaneous regimen except increase regular insulin coverage to high dose. Given patient is nothing by mouth we will need to continue with IV D5 normal saline. Transaminitis, present on admission, ongoing -Most likely secondary to hepatic steatosis and LFTs remains fairly stable -CT showed no biliary,bile or pancreatic duct dilation. -HBV, HCV, HIV negative Elevated blood pressure, present on admission, improving -Likely stress-induced -Remained mostly hemodynamically stable -Consider adding lisinopril if SBP > 130 mmHg once DKA resolved Thrombocytopenia, not present on admission -DC SUB-Q heparin -Check HIT antibodies DVT prophylaxis: Heparin CODE STATUS full code Patient Status: Patient is admitted under inpatient status with expected length of stay GREATER than 2 midnights due to severity of presenting symptoms, risk of adverse event, and complexity of treatment plan. VTE Prophylaxis: Sub-Q Heparin (Unfractionated) Resuscitation Status: CPR: Attempt Resuscitation Time spent 30 minutes Brie Estrella MD Jan 18, 2017 14:14
--- NOTE | 2017-01-18 17:30 | NUR ---
Activity.. Pt has been up and amb more today and is lobito activity well. Continues to lobito ice chips and denies any nausea or abdominal pain. K level remains low, ongoing K rider infusing per replacement protocol.
[2017-01-18] MEDS: Insulin GLARgine 100 Unit/mL Syringe SUBQ SCH (20:18)
[2017-01-19 03:13] LABS: Mean Corpuscular Hemoglobin 31.7 pg (27.0-35.0); Mean Corpuscular Volume 90.1 fL (81-100)
[2017-01-19 03:14] LABS: EOSINOPHILS % (AUTO) 4.3 % (0-5); MONOCYTES % (AUTO) 15.1 % (4-12); NEUTROPHILS % (AUTO) 47.3 % (40-74); Platelet Count 62 bil/L (150-400)
[2017-01-19 04:00] VITALS: BP 142/93; PULSE 77; RESP 16; O2SAT 97
[2017-01-19] MEDS ORDERED: KCl 40 mEq/500 mL D5W(K 3 - 3.7 & Creat < 2) IV ONE ×2 (04:50→14:45)
[2017-01-19] MEDS: Insulin Human REGular 300 Unit/3 mL Inj SUBQ SCH ×4 (05:20→21:13)
--- NOTE | 2017-01-19 06:17 | NUR ---
Activity/labs: Pt up in room indep. no nausea or vomiting minimal abd discomfort. potassium this am was 3.4 40 meq of potassium given per replacement protocol.
[2017-01-19] MEDS: D5 0.9% NaCl + KCl 20 mEq/L 1,000 ML IV SCH ×3 (06:50→23:47)
[2017-01-19] MEDS ORDERED: KCl 40 mEq/D5W 500 mL 20 MEQ in IV Premix 1 EACH IV ONE (07:20)
[2017-01-19] MEDS ORDERED: Insulin GLARgine 100 Unit/mL Syringe SUBQ ONE (07:25)
[2017-01-19 08:00] VITALS: BP 144/96; PULSE 78; RESP 16; O2SAT 98
[2017-01-19 12:30] VITALS: BP 150/90; PULSE 72; RESP 13; O2SAT 99
--- NOTE | 2017-01-19 14:20 | PCM.PNMED ---
Subjective Date of Service Jan 19, 2017 Subjective Patient is ambulating well around room, continues ice chips without any evidence of nausea or abdominal pain. Continues K rider for persistently low potassium, K level 3.4 this morning. Lipase has trended up Blood pressure remains mildly elevated, afebrile. Urinary output 3.3 L yesterday. MRCP shows no evidence of choledocholithiasis Today patient states he is doing well, reports ongoing diarrhea yellow color. Denies any abdominal pain or return of nausea/vomiting. Is very hungry Exam Vital Signs Vital Sign - Last Date Time Temp Pulse Resp B/P Pulse Ox O2 Delivery O2 Flow Rate FiO2 01/19/17 04:00 37.5 77 16 142/93 97 Room Air Intake and Output 01/18/17 01/18/17 01/19/17 Cumulative From/Thru 15:00 23:00 07:00 01/16/17 11:19 - 01/19/17 06:13 Intake Total 1267 ml 1739 ml 06089 ml Output Total 2000 ml 6350 ml Balance -733 ml 1739 ml 5171 ml Intake Oral 400 ml 200 ml 1200 ml IV Total 867 ml 1539 ml 52978 ml Output Urine Total 2000 ml 6350 ml Other 0 ml # Voids 1 1 Exam General: Awake and alert sitting in bedside chair with family present. No acute distress and appropriately interactive HEENT: Normocephalic, atraumatic. Cardiovascular: Regular rate and rhythm with no murmurs, rubs, or gallops appreciated Pulmonary: Clear to auscultation bilaterally with no crackles, wheezes, or rhonchi. Normal respiratory effort with no use of accessory muscles. Abdomen: Obese abdomen, Bowel tones present. Soft, nontender to palpation 4 quadrants. No epigastric tenderness to deep palpation Extremities: No clubbing, cyanosis, edema Skin: Normal temperature, turgor, and texture Neurological: Cranial nerves grossly intact. Psychiatric: Normal mood and affect. Alert and oriented to person, place, and time. IVs and Medications Medications Reviewed: Medications were reviewed in detail Lab and Diagnostics Result Diagram: 01/19/1724901/19/17 025 X-Rays, CTs and MRIs . CT ABDOMEN AND PELVIS WITH CONTRAST IMPRESSION: 1. Acute pancreatitis, edematous type. 2. No intrahepatic biliary ductal dilatation, dilatation of the common bile duct , or pancreatic ductal dilatation. No discrete hypodensity focus is present within the biliary system to suggest gallstone pancreatitis. 3. Cholelithiasis. No findings to suggest choledocholithiasis or acute cholecystitis. 4. Hepatic steatosis. 5. Bilateral adrenal myelolipomas. Dictated by: Rozina Cat M.D. on 01/16/2017 MR ABDOMEN MRCP IMPRESSION: Acute pancreatitis, as before. A previous small gallstone seen on the recent prior CT is not definitely well- visualized. This could be due to limitations of the imaging modality. Bilateral adrenal lesions, larger on the right and with appearance that suggests adrenal myolipoma. This is not well-visualized on the left and better visualized on the recent CT. Please see report. Mild perihepatic ascites. No definite intraluminal findings to suggest choledocholithiasis. Please see comments above. If there is persistent high clinical suspicion, recommend further assessment with ERCP. Dictated by: Juvenal Roper M.D. on 01/18/2017 Assessment & Plan Pt is a 41-year-old male with medical history significant for diabetes type II, admitted for DKA and pancreatitis Diabetes ketoacidosis, present on admission, resolved -Likely secondary to unmedicated status, no coverage for diabetes as outpatient -Blood sugar 542 on admission with moderate ketones, gap 42, bicarbonate 4, ABG pH 7.045 -Continue D5 normal saline with KCl at 125 mL per hour -Repeat Glucose 128, Anion gap now 15 -Insulin drip, DKA protocol in place -Titrated off insulin drip, continue glargine 30 units subcutaneous on high- dose correctional scale Acute pancreatics, present on admission, ongoing -CT-abd pelvis shows acute pancreatitis -Lipase 866 on admission, continues to trend down with uptick today -MRCP shows no choledocholithiasis, shows acute pancreatitis -Bowel rest, NPO -Fluids as above -Physical exam shows no epigastric tenderness or nausea vomiting. Patient has been nothing by mouth 5 days. Will advance diet to clear liquids as tolerated. -Continue to monitor Insulin-dependent diabetes type II, present on admission, chronic -Insulin drip titrated off -Correctional scale insulin -A1c 12.2 -Will need PCP placement on discharge for ongoing DM management -Continue with current subcutaneous regimen except increase regular insulin coverage to high dose. Given patient is nothing by mouth we will need to continue with IV D5 normal saline. Transaminitis, present on admission, ongoing -Most likely secondary to hepatic steatosis and LFTs remains fairly stable -CT showed no biliary,bile or pancreatic duct dilation. -HBV, HCV, HIV negative -To monitor Elevated blood pressure, present on admission, improving -Likely stress-induced -Remained mostly hemodynamically stable -Consider adding lisinopril if SBP > 130 mmHg once DKA resolved Thrombocytopenia, not present on admission -DC SUB-Q heparin -Check HIT antibodies DVT prophylaxis: Heparin CODE STATUS full code Patient Status: Patient is admitted under inpatient status with expected length of stay GREATER than 2 midnights due to severity of presenting symptoms, risk of adverse event, and complexity of treatment plan. VTE Prophylaxis: Sub-Q Heparin (Unfractionated) Resuscitation Status: CPR: Attempt Resuscitation DESTINY GUEVARA DO Jan 19, 2017 07:40
[2017-01-19 16:49] VITALS: BP 139/95; PULSE 86; RESP 15; O2SAT 100
[2017-01-19] MEDS ORDERED: Potassium Chloride Oral 20 mEq SR Tab(K 3 - 3.7 & Creat < 2) PO ONE (16:50)
--- NOTE | 2017-01-19 17:20 | NUR ---
Electrolytes/Diet.. K+ rechecks are still requiring K replacement per protocol. Pt has been voiding QS but has not been measuring with urinal as he has also had some diarrhea stools and was not able to get the urinal due to urgency. Instructed that we still need accurate outputs if he is able. Has had NPO status changed to clear liquids and is lobito this well. Denies any nausea or abdominal pain this shift.
[2017-01-19] MEDS ORDERED: Insulin GLARgine 100 Unit/mL Syringe SUBQ SCH (21:00)
[2017-01-19 21:14] VITALS: BP 147/96; PULSE 86; RESP 13; O2SAT 97
[2017-01-20 02:37] VITALS: BP 160/101; PULSE 72; RESP 16; O2SAT 96
[2017-01-20] MEDS: Insulin Human REGular 300 Unit/3 mL Inj SUBQ SCH ×4 (02:40→21:03)
[2017-01-20 03:19] LABS: Mean Corpuscular Hemoglobin 31.3 pg (27.0-35.0)
[2017-01-20 03:20] LABS: BASOPHILS % (AUTO) 1.1 % (0-3); EOSINOPHILS % (AUTO) 5.1 % (0-5); MONOCYTES % (AUTO) 16.1 % (4-12); NEUTROPHILS % (AUTO) 44.3 % (40-74); Platelet Count 77 bil/L (150-400)
[2017-01-20] MEDS ORDERED: Potassium Chloride Oral 20 mEq SR Tab(K 3 - 3.7 & Creat < 2) PO ONE (05:05)
--- NOTE | 2017-01-20 05:58 | NUR ---
K Pt's potassium still remains low at this morning's blood draw. Pt given KCL 40MeQ. Redraw scheduled for 929 this morning.
[2017-01-20 06:10] VITALS: RESP 16
[2017-01-20 08:29] VITALS: BP 149/106; PULSE 79; RESP 20; O2SAT 99
[2017-01-20 11:51] VITALS: BP 142/98; PULSE 82; RESP 16; O2SAT 99
--- NOTE | 2017-01-20 13:50 | PCM.PNMED ---
Subjective Date of Service Jan 20, 2017 Subjective No significant events reported overnight, potassium remains low requiring potassium replacement per protocol. Today patient reports no pain or discomfort , able to ambulate without difficulty no epigastric pain. Is anxious to go home , but understands necessity for 1 more day of monitoring on advancement of diet. Vital signs remained slightly hypertensive. Good urinary output Exam Vital Signs Vital Sign - Last Date Time Temp Pulse Resp B/P Pulse Ox O2 Delivery O2 Flow Rate FiO2 01/20/17 11:51 37.2 82 16 142/98 99 Room Air Intake and Output 01/19/17 01/19/17 01/20/17 Cumulative From/Thru 15:00 23:00 07:00 01/16/17 11:19 - 01/20/17 05:50 Intake Total 3136 ml 1744 ml 71360 ml Output Total 800 ml 7150 ml Balance 3136 ml 944 ml 9251 ml Intake Oral 1200 ml 300 ml 2700 ml IV Total 1936 ml 1444 ml 83094 ml Output Urine Total 800 ml 7150 ml Other 0 ml # Voids 3 4 # Bowel Movements 3 3 Exam General: Awake and alert sitting in bedside chair in no acute distress, appropriately interactive HEENT: Normocephalic, atraumatic Cardiovascular: Regular rate and rhythm with no murmurs, rubs, or gallops appreciated Pulmonary: Clear to auscultation bilaterally with no crackles, wheezes, or rhonchi. Normal respiratory effort with no use of accessory muscles Abdomen: Bowel tones present. Soft, nontender to palpation 4 quadrants. No epigastric tenderness to deep palpation Extremities: No clubbing, cyanosis, edema Skin: Normal temperature, turgor, and texture Neurological: Cranial nerves grossly intact. Psychiatric: Normal mood and affect. Alert and oriented to person, place, and time. IVs and Medications Medications Reviewed: Medications were reviewed in detail Lab and Diagnostics Result Diagram: 01/20/17 0235 01/20/17 0935 X-Rays, CTs and MRIs . CT ABDOMEN AND PELVIS WITH CONTRAST IMPRESSION: 1. Acute pancreatitis, edematous type. 2. No intrahepatic biliary ductal dilatation, dilatation of the common bile duct , or pancreatic ductal dilatation. No discrete hypodensity focus is present within the biliary system to suggest gallstone pancreatitis. 3. Cholelithiasis. No findings to suggest choledocholithiasis or acute cholecystitis. 4. Hepatic steatosis. 5. Bilateral adrenal myelolipomas. Dictated by: Rozina Cat M.D. on 01/16/2017 MR ABDOMEN MRCP IMPRESSION: Acute pancreatitis, as before. A previous small gallstone seen on the recent prior CT is not definitely well- visualized. This could be due to limitations of the imaging modality. Bilateral adrenal lesions, larger on the right and with appearance that suggests adrenal myolipoma. This is not well-visualized on the left and better visualized on the recent CT. Please see report. Mild perihepatic ascites. No definite intraluminal findings to suggest choledocholithiasis. Please see comments above. If there is persistent high clinical suspicion, recommend further assessment with ERCP. Dictated by: Juvenal Roper M.D. on 01/18/2017 Assessment & Plan Pt is a 41-year-old male with medical history significant for diabetes type II, admitted for DKA and pancreatitis Diabetes ketoacidosis, present on admission, resolved -Likely secondary to unmedicated status, no coverage for diabetes as outpatient -Blood sugar 542 on admission with moderate ketones, gap 42, bicarbonate 4, ABG pH 7.045 -Continue to advance diet, now full liquid -Anion gap remains 15 -DKA protocol insulin drip DC'd -Titrated off insulin drip, continue glargine 30 units subcutaneous on high- dose correctional scale Acute pancreatics, present on admission, ongoing -CT-abd pelvis shows acute pancreatitis -Lipase 866 on admission, continues to trend down -MRCP shows no choledocholithiasis, shows acute pancreatitis -Bowel rest, clear liquids, advance diet to full liquids today -Physical exam shows no epigastric tenderness or nausea vomiting. -Continue to monitor Insulin-dependent diabetes type II, present on admission, chronic -Insulin drip titrated off -A1c 12.2 -Blood sugars remain elevated -Correctional scale insulin -35 units glargine subcutaneous at bedtime -Will need PCP placement on discharge for ongoing DM management, agrees to be seen in the residency clinic -Continue with current subcutaneous regimen except increase regular insulin coverage to high dose. Transaminitis, present on admission, ongoing -Most likely secondary to hepatic steatosis and LFTs remains fairly stable -CT showed no biliary,bile or pancreatic duct dilation. -HBV, HCV, HIV negative -CT shows fatty infiltration of liver -Continue to monitor Elevated blood pressure, present on admission, improving -Remains persistently hypotensive despite lisinopril 10 mg -Increase lisinopril dose to 20 mg daily Thrombocytopenia, not present on admission -DC SUB-Q heparin -HRT antibody studies pending -Platelets trending up -Continue to monitor DVT prophylaxis: SCDs, patient ambulating frequently CODE STATUS full code Patient Status: Patient is admitted under inpatient status with expected length of stay GREATER than 2 midnights due to severity of presenting symptoms, risk of adverse event, and complexity of treatment plan. VTE Prophylaxis: Sub-Q Heparin (Unfractionated) Resuscitation Status: CPR: Attempt Resuscitation Time spent 30 minutes Attending Statement Patient has been seen and examined by myself with medical imaging director and agree with above history, physical, assessment and plan. DESTINY GUEVARA DO Jan 20, 2017 13:50 Brie Estrella MD Jan 20, 2017 17:57
--- NOTE | 2017-01-20 14:18 | NUR ---
NUTRITION FOLLOW UP ASSESS: 41 YO M admitted for DKA, resolved per notes. Pt with acute pancreatitis. Diet advanced to full liquids today. PMHx: Diabetes type II diagnosed in 2008. DIET: Full liquids. PO intake 100%. LABS: BUN 3, Cr 0.47, Glu 210, AST 91, ALT 72 MEDICATIONS: Reviewed. Insulin. GI: 3 BM 01/19. SKIN: No issues noted. ANTHROPOMETRICS: Wt: 94.3 kg, BMI: 29.8 kg/m2, IBW: 73.0 kg (126% IBW) ESTIMATED NEEDS: BMI Calories: 2765-4592 kcal/day (20-22 kcal/kg BW) Protein: 91-113 g/day (1.2-1.5 g/kg IBW) NUTRITION DIAGNOSIS: 1) Food and nutrition-related knowledge deficit related to lack of self care/finances, as evidenced by DKA and using OTC medication due to inability to afford prescription medication. INTERVENTION: 1) Continue to advance diet as tolerated. Will add diabetic supplement to encourage adequate nutrition while on full liquid diet. 2) Diabetes education provided 01/18. MONITOR/EVALUATE: Diet advance/tolerance, PO intake, labs, GI/nutrition status. Follow per moderate nutrition risk guidelines.
--- NOTE | 2017-01-20 19:03 | NUR ---
BG pt BG this am 202, 4unit of Humulin R given. Pt BG in afternoon was 248, 4 unit Humulin R given given. aware. Lantus increased from 30 to 35 unit for tonight.
[2017-01-20] MEDS ORDERED: Insulin GLARgine 100 Unit/mL Syringe SUBQ SCH (21:00)
[2017-01-20 21:10] VITALS: BP 160/100; PULSE 86; RESP 18; O2SAT 98
--- NOTE | 2017-01-20 23:47 | NUR ---
Transfer to [facility] Order obtained to transfer patient to [facility] room 1001. Bonnie AYERS took report. All questions answered. Meds and chart brought to new room. All belongings accompanied the patient.
[2017-01-21] VITALS (7 sets, daily range): BP systolic 127–167; BP diastolic 77–114; PULSE 52–105; RESP 16–18; O2SAT 92–99
--- NOTE | 2017-01-21 01:18 | NUR ---
Transfer from [facility] Pt transferred from [facility] to 1001 at 2345. Pt arrived via w/c, able to transfer self. All belongings with and accounted for. Report rec'd from David. Pt is a/o x4, able to make needs known. IV to left AC asymptomatic, SL. IV to right hand bleeding and partially dislodged. D/C'd with catheter intact. Pt is CPR. Full liquid diet. Tolerating well. 0 c/o pain. Elevated BP, MD aware. Oriented to room and call light. Independent in room. Care continues.
[2017-01-21] MEDS: Insulin Human REGular 300 Unit/3 mL Inj SUBQ SCH ×3 (02:39→14:54)
[2017-01-21 05:34] LABS: BASOPHILS % (AUTO) 0.9 % (0-3); EOSINOPHILS % (AUTO) 5.6 % (0-5); MONOCYTES % (AUTO) 17.5 % (4-12); Mean Corpuscular Hemoglobin 31.6 pg (27.0-35.0); Mean Corpuscular Volume 89.5 fL (81-100); NEUTROPHILS % (AUTO) 41.2 % (40-74); Platelet Count 93 bil/L (150-400)
[2017-01-21 06:02] LABS: Magnesium 1.6 mg/dL (1.6-2.6)
--- NOTE | 2017-01-21 06:05 | NUR ---
BP Pt BP 195/85, vasotec given. Waiting for effects. Will monitor. Care continues Addendum: 01/21/17 at 0608 by TERRANCE LIGHT RN Wrong BP written- correct BP 150/102- monitoring vasotec results
--- NOTE | 2017-01-21 08:28 | PCM.PNMED ---
Subjective Date of Service Jan 21, 2017 Subjective Patient seen and examined. He is doing good. Tolerated liquids. Vitals stable. Exam Vital Signs Vital Sign - Last Date Time Temp Pulse Resp B/P Pulse Ox O2 Delivery O2 Flow Rate FiO2 01/21/17 07:51 36.7 78 16 167/106 97 Room Air Intake and Output 01/20/17 01/20/17 01/21/17 Cumulative From/Thru 15:00 23:00 07:00 01/16/17 11:19 - 01/21/17 05:52 Intake Total 598 ml 300 ml 55545 ml Output Total 650 ml 400 ml 8200 ml Balance -52 ml -100 ml 9099 ml Intake Oral 598 ml 300 ml 3598 ml IV Total 52640 ml Output Urine Total 650 ml 400 ml 8200 ml Other 0 ml 0 ml # Voids 4 # Bowel Movements 0 3 Exam General: Awake and alert sitting in bedside chair in no acute distress, appropriately interactive HEENT: Normocephalic, atraumatic Cardiovascular: Regular rate and rhythm with no murmurs, rubs, or gallops appreciated Pulmonary: Clear to auscultation bilaterally with no crackles, wheezes, or rhonchi. Normal respiratory effort with no use of accessory muscles Abdomen: Bowel tones present. Soft, nontender to palpation 4 quadrants. No epigastric tenderness to deep palpation Extremities: No clubbing, cyanosis, edema Skin: Normal temperature, turgor, and texture Neurological: Cranial nerves grossly intact. Psychiatric: Normal mood and affect. Alert and oriented to person, place, and time. Lab and Diagnostics Result Diagram: 01/21/1743601/21/17 043 X-Rays, CTs and MRIs . CT ABDOMEN AND PELVIS WITH CONTRAST IMPRESSION: 1. Acute pancreatitis, edematous type. 2. No intrahepatic biliary ductal dilatation, dilatation of the common bile duct , or pancreatic ductal dilatation. No discrete hypodensity focus is present within the biliary system to suggest gallstone pancreatitis. 3. Cholelithiasis. No findings to suggest choledocholithiasis or acute cholecystitis. 4. Hepatic steatosis. 5. Bilateral adrenal myelolipomas. Dictated by: Rozina Cat M.D. on 01/16/2017 MR ABDOMEN MRCP IMPRESSION: Acute pancreatitis, as before. A previous small gallstone seen on the recent prior CT is not definitely well- visualized. This could be due to limitations of the imaging modality. Bilateral adrenal lesions, larger on the right and with appearance that suggests adrenal myolipoma. This is not well-visualized on the left and better visualized on the recent CT. Please see report. Mild perihepatic ascites. No definite intraluminal findings to suggest choledocholithiasis. Please see comments above. If there is persistent high clinical suspicion, recommend further assessment with ERCP. Dictated by: Juvenal Roper M.D. on 01/18/2017 Assessment & Plan Pt is a 41-year-old male with medical history significant for diabetes type II, admitted for DKA and pancreatitis Acute pancreatics, present on admission, ongoing -CT-abd pelvis shows acute pancreatitis -Lipase 866 on admission, trended down and trended up today, likely as patient is eating now, will trend -MRCP shows no choledocholithiasis, shows acute pancreatitis -Bowel rest, clear liquids, advance diet to full liquids today -Physical exam shows no epigastric tenderness or nausea vomiting. -Continue to monitor Diabetes ketoacidosis, present on admission, resolved -Likely secondary to unmedicated status, no coverage for diabetes as outpatient -Blood sugar 542 on admission with moderate ketones, gap 42, bicarbonate 4, ABG pH 7.045 -Continue to advance diet -DKA protocol insulin drip DC'd -Titrated off insulin drip, continue glargine 35 units subcutaneous on high- dose correctional scale -insurance issues with insulin coverage, to be clarified as patient says he cannot afford expensive meds Insulin-dependent diabetes type II, present on admission, chronic -Insulin drip titrated off -A1c 12.2 -Blood sugars remain elevated -Correctional scale insulin -will increase lantus to 40 units -Will need PCP placement on discharge for ongoing DM management, agrees to be seen in the residency clinic -Continue with current subcutaneous regimen except increase regular insulin coverage to high dose. Transaminitis, present on admission, ongoing -Most likely secondary to hepatic steatosis and LFTs remains fairly stable -CT showed no biliary,bile or pancreatic duct dilation. -HBV, HCV, HIV negative -CT shows fatty infiltration of liver -Continue to monitor Elevated blood pressure, present on admission, improving -Remains persistently hypotensive despite lisinopril 10 mg -Increase lisinopril dose to 20 mg daily Thrombocytopenia, not present on admission -DC SUB-Q heparin -HRT antibody studies pending -Platelets trending up -Continue to monitor DVT prophylaxis: SCDs, patient ambulating frequently CODE STATUS full code Patient Status: Patient is admitted under inpatient status with expected length of stay GREATER than 2 midnights due to severity of presenting symptoms, risk of adverse event, and complexity of treatment plan. VTE Prophylaxis: Sub-Q Heparin (Unfractionated) Resuscitation Status: CPR: Attempt Resuscitation Time spent 35 mins Sabas Leon MD Jan 21, 2017 08:28
--- NOTE | 2017-01-21 11:58 | NUR ---
Social Work- Readiness for Discharge Data: EMR reviewed. Pt is on day 5 of hospitalization for DKA. Pt discussed in multidisciplinary rounds, pt is likely to d/c tomorrow. Pt's sugars remain high and pt has pancreatitis. Pt has PCP appointment scheduled at the residency clinic for January 24 at 1435 check in. Information relayed to pt and is included in d/c instructions. SW spoke with pt regarding insulin and insurance. Pt has not tried to get Lantus or Humalog since obtaining [employer] through his employer on November 23. Pt reports that he has lost his insurance card. SW provided pt with the customer service number for [employer] and pt was going to call them after this conversation to work on obtaining a new insurance card. SW discussed that with his [employer] insurance the Lantus and Humalog are likely to be covered. Discussed that pt will likely be discharged with new insulin prescriptions for Lantus and Humalog and if pt is unable to obtain these prescriptions at an appropriate [place] on day of discharge then he can follow up with his PCP on January 24. Pt and MD agreeable to plan. Pt to d/c home with his niece to transport via POV when medically stable. SW will continue to follow. Assessment: Pt who is independent at baseline. Plan: Pt to d/c home with his niece to transport via POV with new insulin prescriptions. If pt is unable to obtain his Lantus and Humalog with his new insurance ([employer]) then pt will discuss at residency clinic appointment on January 24. MD and pt all agreeable to plan. SW will continue to follow. SOURAV Romero
--- NOTE | 2017-01-21 13:10 | NUR ---
NUTRITION CONSULT Inpatient diabetes eduction order received. Pt already received diabetic education this admit on 01/18.
[2017-01-21] MEDS: 0.9% Sodium Chloride 1,000 ML IV SCH ×2 (14:53→23:58)
[2017-01-21] MEDS ORDERED: Glucose 40% Oral Gel 15 Gm Tube PO PRN (15:20)
[2017-01-21] MEDS: Insulin LISPRO 300 Unit/3 mL Inj SUBQ SCH ×2 (18:32→21:12)
--- NOTE | 2017-01-21 18:34 | NUR ---
Activity Patient up independent in room. Denies pain and nausea this shift. Patient repositions self for comfort. Call light and tray table within reach. Will continue to monitor patient hourly.
[2017-01-21] MEDS ORDERED: Insulin GLARgine 100 Unit/mL Syringe SUBQ SCH (21:00)
[2017-01-22 02:00] VITALS: BP 150/101; PULSE 63; RESP 20; O2SAT 98
--- NOTE | 2017-01-22 02:58 | NUR ---
HTN BP at 0200 was 150/101, pt asymptomatic. Vasotec given. Will continue to monitor BP.
[2017-01-22 06:05] VITALS: BP 148/98; PULSE 84; RESP 20; O2SAT 98
[2017-01-22 06:19] LABS: BASOPHILS % (AUTO) 1.1 % (0-3); EOSINOPHILS % (AUTO) 4.5 % (0-5); MONOCYTES % (AUTO) 19.4 % (4-12); Mean Corpuscular Hemoglobin 31.9 pg (27.0-35.0); NEUTROPHILS % (AUTO) 41.8 % (40-74); Platelet Count 105 bil/L (150-400)
[2017-01-22] MEDS: Insulin LISPRO 300 Unit/3 mL Inj SUBQ SCH ×2 (07:55→12:32)
[2017-01-22 09:10] VITALS: BP 136/93; PULSE 89; RESP 15; O2SAT 98
[2017-01-22] MEDS: 0.9% Sodium Chloride 1,000 ML IV SCH (09:53)
--- NOTE | 2017-01-22 09:57 | NUR ---
Blood pressure BP 136/93, pulse 89. per orders to give Vasotec IV injection if DBP more than 90. Notified Hospitalist Dr. Brewster and orders to hold it. No Vasotec given per hospitalist. patient is asymptomatic.
[2017-01-22 12:35] VITALS: BP 161/106; PULSE 93; RESP 17; O2SAT 98
--- NOTE | 2017-01-22 13:50 | PCM.DIMED ---
Discharge Instructions Date of Service Jan 22, 2017 Dates of Hospitalization Jan 16, 2017 at 12:45 Discharge Diagnosis Discharge Diagnosis Acute pancreatitis Diet Discharge Diet: Low fat, Low Sodium, Heart Healthy, Diabetic Call your provider Call your provider for: Fever or Chills, Shortness of breath, Bleeding, Chest pain, Vomitting, Excessive diarrhea, Weakness (unilateral), Other (abdominal pain) Patient Instructions Follow-up with PCP in: Other (3-4 days after discharge) Marito Brewster MD Jan 22, 2017 13:50
[2017-01-22] MEDS ORDERED: INSU100V7 SUBQ (13:51)
[2017-01-22] MEDS ORDERED: LISI-610 PO (13:51)
[2017-01-22] MEDS ORDERED: FLUC25PO MC (13:58)
--- NOTE | 2017-01-22 14:36 | NUR ---
Social Work- Discharge Data: EMR reviewed. Pt is on day 6 of hospitalization for DKA. Pt discussed in multidisciplinary rounds, pt to discharge today. Discharge orders are active. Discharge plan confirmed with pt. Pt to discharge today and obtain his insulin. If there are problems obtaining insulin, pt to work with PCP on January 24. Pt to d/c home with his niece to transport via POV. No additional d/c planning needs. Assessment: Pt who is independent at baseline with ADLs and self-care. Plan: Pt to d/c home with his niece to transport via POV with new insulin prescriptions. If pt is unable to obtain his scripts with his new insurance ([employer]) then pt will discuss at residency clinic appointment on January 24. No additional d/c needs. SOURAV Romero
--- NOTE | 2017-01-22 14:53 | PCM.DC.MED ---
Discharge Summary Date of Service Jan 22, 2017 Dates of Hospitalization Date of Hospital Admission Jan 16, 2017 at 12:45 Date of Discharge: Jan 22, 2017 Providers: Admitting Physician: Brie Estrella MD Primary Care Physician: Lorenza Attending Physician: Marito Brewster MD Diagnosis at Time of Discharge Diagnosis at Time of Discharge Acute pancreatitis Procedures XRay, CTs & MRIs . CT ABDOMEN AND PELVIS WITH CONTRAST IMPRESSION: 1. Acute pancreatitis, edematous type. 2. No intrahepatic biliary ductal dilatation, dilatation of the common bile duct , or pancreatic ductal dilatation. No discrete hypodensity focus is present within the biliary system to suggest gallstone pancreatitis. 3. Cholelithiasis. No findings to suggest choledocholithiasis or acute cholecystitis. 4. Hepatic steatosis. 5. Bilateral adrenal myelolipomas. Dictated by: Rozina Cat M.D. on 01/16/2017 MR ABDOMEN MRCP IMPRESSION: Acute pancreatitis, as before. A previous small gallstone seen on the recent prior CT is not definitely well- visualized. This could be due to limitations of the imaging modality. Bilateral adrenal lesions, larger on the right and with appearance that suggests adrenal myolipoma. This is not well-visualized on the left and better visualized on the recent CT. Please see report. Mild perihepatic ascites. No definite intraluminal findings to suggest choledocholithiasis. Please see comments above. If there is persistent high clinical suspicion, recommend further assessment with ERCP. Dictated by: Juvenal Roper M.D. on 01/18/2017 Hospital Course This 41-year-old male with a past medical history of diabetes type II who presented to the hospital with nausea vomiting abdominal pain. He was diagnosed with acute pancreatitis, DKA. He was treated with IV fluids and insulin drip according to DKA protocol. CT scan of the abdomen and MRCP showed acute pancreatitis, MRCP also showed myolipoma in the adrenal glands. The patient improved he was discharged home with recommendation to follow up with his primary doctor for further inhalation management. He was started on lisinopril for his high blood pressure, Lantus 35 units at night for his diabetes. I also gave the patient prescription for fluconazole for his groin Candidiasis. Patient was seen and examined on the day of discharge. During discharge patient was alert and oriented able to make own informed decisions. We discussed possible serious side effects, adverse reactions, benefits, risks, alternatives of current newly prescribed medications and diagnostic procedures. Patient verbalized understanding and agreed to current plan of care and discharge During discharge patient was allert, oriented, fully competent, able to make own informed decisions. We discussed possible severe side effects, adverse reactions, benefits, risks, alternatives of current and newly prescribed medications and diagnostic procedures. Patient verbalized understanding and agreed to current plan of care and discharge. TIME SPENT IN DISCHARGE ACTIVITY: Face to face activity greater then 30 minutes spent in discharge activity. 1. Discussed with patient re: discharge plan of care/treatment, and follow up care/services. 2. Patient agreed with discharge plan and further plan of care, all questions were answered/addressed, no further questions at the time of discharge. discharge summary. Exam Vital Signs (Last) Date Time Temp Pulse Resp B/P Pulse Ox O2 Delivery O2 Flow Rate FiO2 01/22/17 12:35 36.6 93 17 161/106 98 Room Air Test 01/16/17 11:30 01/16/17 11:33 01/16/17 14:22 01/16/17 15:25 Osmolality 329 (275-300) Troponin T 0.010ug/L (0.0-0.011) Hold Comer Top Tube Received (Received) Ketones Moderate (Negative) Hold Urine Received (Received) Triglycerides Level 330mg/dL (0-149) Cholesterol Level 236mg/dL (100-199) LDL Cholesterol, Calculated 123.000mg/dL (0-99) VLDL Cholesterol 66.000mg/dL HDL Cholesterol 47mg/dL (>39) Cholesterol/HDL Ratio 5.02 (0.0-4.4) Hepatitis A IgM Antibody Negative (Negative) Hepatitis B Surface Antigen Negative (Negative) Hepatitis B Core IgM Antibody Negative (Negative) Hepatitis C Antibody 0.2s/co ratio (0.0-0.9) Hepatitis C Comment Comment (.) HIV (1&2) Ag and Ab, 4th Generation Non reactive (Non Reactive) Test 01/17/17 04:05 01/17/17 13:20 01/18/17 03:08 01/18/17 16:09 Direct Bilirubin 0.2mg/dL (0.0-0.3) Phosphorus Level 2.7mg/dL (2.5-4.9) Hemoglobin A1c 12.4% (4.8-5.6) Heparin-PF4 Ab Optical Density 0.066OD (<0.4) Heparin-PF4 Antibody Interpretation Not indicated Test 01/21/17 04:37 01/22/17 05:10 Magnesium Level 1.6mg/dL (1.6-2.6) White Blood Count 5.6th/mm3 (3.8-10.1) Red Blood Count 4.52mil/mm3 (4.40-5.80) Hemoglobin 14.4g/dL (13.8-17.2) Hematocrit 40.7% (41.0-50.0) Mean Corpuscular Volume 90.0fL (81-100) Mean Corpuscular Hemoglobin 31.9pg (27.0-35.0) Mean Corpuscular Hemoglobin Concent 35.4% (32.0-37.0) Red Cell Distribution Width 11.7% (12.3-15.4) Platelet Count 105bil/L (150-400) Neutrophils (%) (Auto) 41.8% (40-74) Lymphocytes (%) (Auto) 33.0% (14-46) Monocytes (%) (Auto) 19.4% (4-12) Eosinophils (%) (Auto) 4.5% (0-5) Basophils (%) (Auto) 1.1% (0-3) Sodium Level 139mEq/L (134-144) Potassium Level 3.8mEq/L (3.5-5.2) Chloride Level 97mEq/L (97-108) Carbon Dioxide Level 27mmol/L (18-29) Blood Urea Nitrogen 10mg/dL (6-24) Creatinine 0.48mg/dL (0.76-1.27) Estimat Glomerular Filtration Rate 204mL/min (>59) Glucose Level 237mg/dL (60-99) Calcium Level 9.5mg/dL (8.5-10.1) Total Bilirubin 0.8mg/dL (0.0-1.2) Aspartate Amino Transf (AST/SGOT) 90U/L (0-50) Alanine Aminotransferase (ALT/SGPT) 83U/L (0-44) Alkaline Phosphatase 146U/L (25-150) Total Protein 6.9g/dL (6.4-8.4) Albumin 3.7g/dL (3.4-5.0) Lipase 704U/L (13-60) Discharge Medications Discharge Medications Fluconazole (Fluconazole) 100 Gm Powder 100 GM MC DAILY Prescribed by: DIANE ALMAZAN MD Insulin Glargine (Lantus U100 Insulin Vial) 100 Unit/Ml Vial 35 UNIT SUBQ HS Prescribed by: DIANE ALMAZAN MD Insulin Regular, Human (Novolin-R U100 Insulin Vial) 100 Unit/1 Ml Vial Unknown Dose SQ ACHS (Reported) Lisinopril (Zestril) 10 Mg Tablet 20 MG PO DAILY Prescribed by: DIANE ALMAZAN MD Followup Plan Discharge Diet: Low fat, Low Sodium, Heart Healthy, Diabetic Follow-up with PCP in: Other (3-4 days after discharge) Marito Brewster MD Jan 22, 2017 14:53
--- NOTE | 2017-01-22 15:16 | NUR ---
discharge patient is alert and orientedX3. Deneis pain or discomfort. Reviewed discharge paper work, discharge instructions, discharge prescriptions, and follow up appointments. patient will call and schedule the follow up appointments with PCP. IV discontinued with out difficulty. patient left unit approx 1435 via walking per preference with family.
== END 2017-01-22 14:45 | disposition home or self-care (01) | DRG 637 ==
LOC: SED 11:16 → CCU 12:45 → PCC 01-17 16:44 → OSC 01-21 00:06
PROVIDERS: ADMIT Specialist; ATTEND Internal Medicine
PROC: 4A033R1 Measurement of Arterial Saturation, Peripheral, Percutaneous Approach (ICD-10-PCS; principal; 2017-01-16)
DX: E13.10 Other specified diabetes mellitus with ketoacidosis without coma (principal); K85.90 Acute pancreatitis without necrosis or infection, unspecified; B37.89 Other sites of candidiasis; I10 Essential (primary) hypertension; E87.5 Hyperkalemia; E86.0 Dehydration; D69.6 Thrombocytopenia, unspecified; Z91.19 Patient's noncompliance with other medical treatment and regimen; Z79.4 Long term (current) use of insulin